=== PATIENT | male | born 1960 | race Caucasian/White ===

== ENCOUNTER 2022-10-12 09:43 | Outpatient (CLI) | payer BC, SELFPAY | END 2022-10-12 09:44 | disposition home or self-care (01) | LOC: NFLDREF 10-14 06:35 | PROVIDERS: PCP Family Medicine; Referring Provider Family Medicine; Visit Provider Family Medicine | DX: Z00.00 Encounter for general adult medical examination without abnormal findings (principal); E11.9 Type 2 diabetes mellitus without complications; I10 Essential (primary) hypertension; E78.00 Pure hypercholesterolemia, unspecified; G62.9 Polyneuropathy, unspecified; M62.50 Muscle wasting and atrophy, not elsewhere classified, unspecified site; R80.9 Proteinuria, unspecified; M10.9 Gout, unspecified | CPT/HCPCS: 80053; 80061; 82043; 82570; 84153 ==

== ENCOUNTER 2022-10-17 09:43 | Outpatient (CLI) | payer BC, SELFPAY | END 2022-10-17 09:44 | disposition home or self-care (01) | LOC: NFLDREF 10-19 05:51 | PROVIDERS: PCP Family Medicine; Referring Provider Family Medicine; Visit Provider Family Medicine | DX: Z00.00 Encounter for general adult medical examination without abnormal findings (principal); E11.9 Type 2 diabetes mellitus without complications; I10 Essential (primary) hypertension; E78.00 Pure hypercholesterolemia, unspecified; M10.9 Gout, unspecified; G62.9 Polyneuropathy, unspecified | CPT/HCPCS: 84270; 84402; 84403 ==

== ENCOUNTER 2022-12-06 13:29 | Outpatient (CLI) | payer BC, SELFPAY ==
[2022-12-06 14:27] VITALS: BP 186/100; PULSE 101; RESP 18
--- NOTE | 2022-12-06 14:36 | W.PM.STED ---
Stress Test Note Date Date Seen: 12/06/22 Date of test: 12/06/22 Providers Primary care provider: Brandon Olmstead Stress test physician: Javed Pritchett Stress Test Note Stress test ordered: Stress Echo Indication for test: High calcium score on CT, shortness of breath, cardiac risk factors Stress test medicine: None Results discussion: Patient is a very nice gentleman who presents for the above test, after discussion risks benefits and side effects he would like to proceed pretest EKG shows normal sinus rhythm, with a ventricular rate of 76, blood pressure 148/88, there is some diffuse ST wave T-wave flattening noted laterally and inferiorly. Patient is exercised for a total time of 7 minutes 29 seconds, achieved a metabolic equivalent of 8.9 Mets, with a maximum heart rate of 129, is 96% of the target, test is terminated, cause of right knee pain. Some very mild ST wave sloping a 1 mm noted in 1 aVL, it is upsloping, this does not fulfill the criteria. Of a positive stress test Impression: Negative electrographic portion of stress test, conditioning was felt to be moderate, did have right knee pain. Follow up suggested: Await echo images, clinical correlation with these will be needed. He was slightly sub threshold for target heart rate. If there is clinical concern ongoing, suggestion would be Gil[place]
== END 2022-12-06 14:31 | disposition home or self-care (01) ==
LOC: STRESS 13:32
PROVIDERS: PCP Family Medicine; Visit Provider Family Medicine
DX: R07.89 Other chest pain (principal); R93.1 Abnormal findings on diagnostic imaging of heart and coronary circulation; E78.00 Pure hypercholesterolemia, unspecified; I10 Essential (primary) hypertension
CPT/HCPCS: 93016; 93325; 93351

== ENCOUNTER 2023-01-19 08:27 | Outpatient (CLI) | payer BC, SELFPAY | END 2023-01-19 08:28 | disposition home or self-care (01) | LOC: NFLDREF 01-20 12:18 | PROVIDERS: PCP Family Medicine; Referring Provider Family Medicine; Visit Provider Family Medicine | DX: E78.00 Pure hypercholesterolemia, unspecified (principal); I10 Essential (primary) hypertension; M62.50 Muscle wasting and atrophy, not elsewhere classified, unspecified site; E11.9 Type 2 diabetes mellitus without complications | CPT/HCPCS: 80053; 80061; 84270; 84402; 84403 ==

== ENCOUNTER 2024-03-05 10:35 | Outpatient (CLI) | payer OTHER, SELFPAY | END 2024-03-05 10:36 | disposition home or self-care (01) | LOC: NFLDREF 03-06 06:47 | PROVIDERS: PCP Family Medicine; Referring Provider Family Medicine; Visit Provider Family Medicine | DX: E11.65 Type 2 diabetes mellitus with hyperglycemia (principal); R79.89 Other specified abnormal findings of blood chemistry; E78.00 Pure hypercholesterolemia, unspecified; I10 Essential (primary) hypertension; Z79.84 Long term (current) use of oral hypoglycemic drugs; Z12.5 Encounter for screening for malignant neoplasm of prostate | CPT/HCPCS: 80053; 80061; 82043; 82570; 84270; 84402; 84403; G0103 ==

== ENCOUNTER 2024-05-28 10:12 | Outpatient (CLI) | payer OTHER, SELFPAY | END 2024-05-28 10:13 | disposition home or self-care (01) | LOC: NFLDREF 05-30 22:40 | PROVIDERS: PCP Family Medicine; Referring Provider Family Medicine; Visit Provider Family Medicine | DX: E11.65 Type 2 diabetes mellitus with hyperglycemia (principal); I10 Essential (primary) hypertension; M10.9 Gout, unspecified; E78.00 Pure hypercholesterolemia, unspecified; Z79.84 Long term (current) use of oral hypoglycemic drugs | CPT/HCPCS: 80053; 80061 ==

== ENCOUNTER 2024-06-18 10:35 | Outpatient (CLI) | payer OTHER, SELFPAY | END 2024-06-18 10:36 | disposition home or self-care (01) | LOC: NFLDREF 06-26 00:11 | PROVIDERS: PCP Family Medicine; Referring Provider Family Medicine; Visit Provider Family Medicine | DX: N28.9 Disorder of kidney and ureter, unspecified (principal) | CPT/HCPCS: 80048 ==